=== PATIENT | male | born 2000 ===

== ENCOUNTER 2021-07-15 13:15 | Emergency (ER) | payer SELFPAY ==
[~2021-07-15] VITALS: Ht 182.9 cm; Wt 96.2 kg
[2021-07-15 13:16] VITALS: BP 140/85
[2021-07-15] MEDS ORDERED: IBUP-1022 PO (13:49)
--- NOTE | 2021-07-15 14:38 | REP ---
INDICATION: pain mainly to 5th/pinky finger. COMPARISON: None. TECHNIQUE: Four views FINDINGS: There is a 5th metacarpal fracture with anterior angulation. IMPRESSION: Boxer's fracture <Electronically signed by Kalyan Black > 07/15/21 [id number]
--- NOTE | 2021-07-16 07:15 | ED PDOC ---
Post-Departure Follow-Up charge nurse given xray report to call patient and infrom needs splint for fx Julieta Arrington MD Jul 16, 2021 07:15
== END 2021-07-15 15:00 | disposition left against medical advice (07) ==
LOC: M ED 13:15
DX: Z53.29 Procedure and treatment not carried out because of patient's decision for other reasons (principal)